=== PATIENT | male | born 1945 ===

== ENCOUNTER 2017-07-06 08:57 | Day surgery (SDC) | payer MEDICARE, OTHER ==
[2017-06-24 11:42] VITALS: BMI 31.9
[2017-07-06] MEDS ORDERED: Propofol 10 mg/ml Inj (20 ML) ONE ×2 (11:25→12:42)
[2017-07-06] MEDS ORDERED: Midazolam 2 MG/2 ML VIAL ONE (11:25)
[2017-07-06] MEDS ORDERED: cefTRIAXone (Rocephin) 1 gm Inj ONE (11:27)
[2017-07-06] MEDS ORDERED: Sevoflurane - Inhalation Anesthetic Liq (250 ml) ONE (11:34)
[2017-07-06] MEDS ORDERED: Lactated Ringer's 1,000 ML IV SCH (12:30)
[2017-07-06 14:24] VITALS: RESP 18; TEMP 98.5
[2017-07-06 14:55] VITALS: BP 115/58; PULSE 53; O2SAT 100
--- NOTE | 2017-07-08 14:38 | OP ---
PROCEDURE DATE: 07/06/2017 Dictation previously done, but did not show up in the system. PREOPERATIVE DIAGNOSES: Bladder outlet obstruction, benign prostatic hypertrophy. POSTOPERATIVE DIAGNOSES: Bladder outlet obstruction, benign prostatic hypertrophy. PROCEDURE: Cystoscopy with laser vaporization of prostate. ATTENDING SURGEON: Edwin Hernandez MD ANESTHESIA: General. SPECIMENS: Fragments of prostate tissue were sent to pathology. DRAINS: A 22-Kyr[place]z 3-way Castro catheter. COMPLICATIONS: There were none. OPERATIVE FINDINGS: After informed consent was obtained, the patient was taken to the operating room and placed on the operating table and anesthesia was administered. The patient was then placed on the dorsal lithotomy position and prepped and draped in usual sterile fashion. A 22-Kyrgyz laser scope was placed in the patient's urethra and advanced proximally under direct vision until the bladder was entered. A full survey inspection of the bladder was then performed, which revealed no stones, tumors or foreign bodies of the bladder. There was grade 1 to 2 trabeculation noted. Both ureteral orifices were visualized and appeared within normal limits. At this point, the scope was withdrawn to the level of the verumontanum. There was a markedly enlarged occlusive-appearing right lateral lobe and median lobe, which were growing together into the bladder covering the trigone. There was some minimal left lobe enlargement as well. At this point, a ProTouch laser fiber was obtained, It was passed through the laser scope and vaporization of the obstructing tissue was begun. The median lobe tissue was vaporized as was all the obstructing right lobe tissue and the small amount of left lobe tissue. The vaporization was carried down from the bladder neck region proximally into the level of the verumontanum was reached. Any bleeding points encountered during the vaporization were controlled using the ProTouch laser fiber. At the end of the procedure, the views from the verumontanum revealed a widely opened bladder neck and prostatic fossa. The verumontanum was intact. The ureteral orifices were intact with no laser damage. Irrigation was turned off and inspection for any bleeding points were made. There was good hemostasis at the end of the case with no active bleeding. At this point, the bladder was inspected. There was moderate amount of pieces of prostate, which had been removed during the resection. The bladder was irrigated and the pieces were able to be removed and the pieces were sent to pathology as specimen. At this point, the procedure was complete. Final inspection was made. There was good hemostasis and no chips in the bladder. At this point, the scope was withdrawn and a 22-Kyrgyz 3-way Castro catheter was passed and placed to continuous bladder irrigation. The patient tolerated the procedure well. He was taken to the recovery room awake and in stable condition. Edwin Hernandez MD
== END 2017-07-06 15:20 | disposition home or self-care (01) ==
LOC: SDS 08:57
PROVIDERS: ATTEND Urology
DX: N32.0 Bladder-neck obstruction (principal); N40.0 Benign prostatic hyperplasia without lower urinary tract symptoms; I10 Essential (primary) hypertension
CPT/HCPCS: 36415; 52648; 84132; 88305; J0696; J2001; J2250; J2405; J2704; J3010; J7120 ×2

== ENCOUNTER 2017-11-19 06:30 | Day surgery (SDC) | payer MEDICARE, OTHER ==
[2017-11-16 08:34] VITALS: BMI 32.6
[2017-11-19] MEDS ORDERED: Lidocaine 2% Inj (20ml) ONE (06:51)
[2017-11-19] MEDS ORDERED: Phenylephrine 10 mg/ml Inj ONE (06:51)
[2017-11-19] MEDS ORDERED: Midazolam 2 MG/2 ML VIAL ONE ×2 (06:51→07:53)
[2017-11-19] MEDS ORDERED: Iodixanol 320 MG/ML 200 ML BOTTLE IV ONE (06:52)
[2017-11-19] MEDS ORDERED: Iodixanol 320 MG/ML 100 ML BOTTLE IV ONE (06:52)
[2017-11-19] MEDS ORDERED: Iohexol 350mgl/ml 50 ML ONE (06:52)
[2017-11-19] MEDS ORDERED: HEPARIN SODIUM/NS 2,000 ML IV ONE (06:52)
[2017-11-19] MEDS ORDERED: Nitroglycerin 50mg in D5W 50 MG/250 ML BOTTLE IV ONE (06:52)
[2017-11-19 07:13] VITALS: RESP 18; TEMP 98.7
[2017-11-19 07:31] LABS: BASO # 0.07 K/mm3 (0.0-2.0); EOS # 0.7 (0.0-0.7); EOS % 10.6 % (1.5-5.0); GRAN # 3.05 (1.4-6.5); GRAN % 44.8 % (50.0-68.0); HEMOGLOBIN 11.8 g/dL (14.0-18.0); LYMPH # 2.4 (1.2-3.4); LYMPH % 35.5 % (22.0-35.0); MEAN CELL VOLUME 98.1 fl (80.0-105.0); MEAN CORPUSCULAR HEMOGLOBIN 32.2 pg (25.0-35.0); MEAN CORPUSCULAR HGB CONC 32.9 g/dl (31.0-37.0); MEAN PLATELET VOLUME 10.8 fl (7.0-11.0); MONO # 0.6 (0.1-0.6); MONO % 8.1 % (1.0-6.0); RBC 3.66 10^6/uL (3.5-6.1); RED CELL DISTRIBUTION WIDTH 13.4 % (11.5-14.5); WHITE BLOOD COUNT 6.8 10^3/ul (4.5-11.0)
[2017-11-19 07:37] LABS: CALCIUM 9.8 mg/dL (8.4-10.5)
[2017-11-19 07:43] LABS: INR 0.91 (0.93-1.08); PROTHROMBIN TIME 10.5 SECONDS (9.4-12.5)
[2017-11-19] MEDS ORDERED: Sodium Chloride 0.9% 1,000 ML IV SCH (08:30)
--- NOTE | 2017-11-19 10:19 | CARDCATH ---
PROCEDURE DATE: 11/19/2017 CARDIAC CATHETERIZATION HISTORY: The patient is a 72-year-old male who suffers from hypercholesterolemia, is a former smoker and suffers from hypertension who presented with chest pain as well as an abnormal stress test. Because of this, cardiac catheterization was recommended. PROCEDURE: Left heart catheterization with coronary arteriography and left ventriculogram. The right femoral artery was cannulated with a 6-[place]garian sheath. I performed moderate sedation which included the presence of an independent trained observer that assisted in monitoring the patient's level of consciousness and physiologic status. After administration of Versed and fentanyl, my intra service time was 15 minutes. The findings on catheterization revealed a left ventricle that contracted normally. The left main artery was unremarkable. The LAD and diagonal vessels revealed diffuse intimal irregularities without critical lesions. The second diagonal vessel which was a small vessel revealed a 90% stenosis at its ostium. The circumflex artery revealed a 50% stenoses in its proximal portion with the rest of the vessel and obtuse marginal branch revealed intimal irregularities without significant stenoses. The right coronary artery was selectively cannulized and found to be a dominant vessel. The RCA revealed intimal irregularities without significant stenoses. LV function was visualized in the VILLARREAL projection. In the VILLARREAL projection, wall motion is within normal limits. Estimated ejection fraction is between 65% and 70%. Angio-Seal was used to close the femoral artery site. The patient tolerated the procedure well. In summary, the procedure revealed 50% stenosis in the proximal circumflex artery as well as disease in the small diagonal vessels. LV function is normal. Given these findings, the patient's treatment will be medical. This should include aspirin daily and a cardiac risk reduction program which needs to include statin therapy. Wolf Wilde MD
[2017-11-19 11:24] VITALS: O2SAT 97
[2017-11-19 15:02] VITALS: BP 134/68; PULSE 55
--- NOTE | 2017-11-19 18:10 | CARD ---
APPROVED REPORT EKG Measurement Heart [id number] <Conclusion> Sinus bradycardia Left axis deviation Abnormal ECG
== END 2017-11-19 14:55 | disposition home or self-care (01) ==
LOC: CATH 06:30
PROVIDERS: ATTEND Internal Medicine Cardiovascular Disease
DX: I25.10 Atherosclerotic heart disease of native coronary artery without angina pectoris (principal); I10 Essential (primary) hypertension; E78.00 Pure hypercholesterolemia, unspecified; Z87.891 Personal history of nicotine dependence
CPT/HCPCS: 36415; 80048; 80061; 85025; 85610; 85730; 86850; 86900; 93005; 93458; 99152; C1760; C1769; C1887; C2629; J1644; J2250; J3010; J7040; Q9967 ×2